=== PATIENT | female | born 1995 | race Caucasian/White ===

== ENCOUNTER 2017-05-16 21:54 | Emergency (ER) | payer BC ==
[~2017-05-16] VITALS: Ht 167.6 cm; Wt 52.2 kg
[2017-05-16 23:00] VITALS: BP 119/70
== END 2017-05-16 23:50 | disposition home or self-care (01) ==
LOC: ER 21:56
DX: J40 Bronchitis, not specified as acute or chronic (principal)
CPT/HCPCS: 99283; A4606; Z7610

== ENCOUNTER 2020-11-23 22:20 | Emergency (ER) | payer BC ==
[~2020-11-23] VITALS: Ht 160 cm; Wt 49.9 kg
[2020-11-23 22:35] VITALS: BP 124/64
[2020-11-23] MEDS ORDERED: DOXY-326 PO (22:58)
[2020-11-23] MEDS ORDERED: DOXYCYCLINE HYCLATE (100 MG) 100 MG TABLET PO ONE (23:00)
[2020-11-23] MEDS ORDERED: DOXYCYCLINE HYCLATE (100 MG) 100 MG TABLET ONE (23:04)
== END 2020-11-23 23:07 | disposition home or self-care (01) ==
LOC: ER 22:36
DX: L03.115 Cellulitis of right lower limb (principal); Z79.899 Other long term (current) drug therapy